=== PATIENT | male | born 1945 | race Caucasian/White ===

== ENCOUNTER 2022-02-21 04:59 | Inpatient (IN) | payer OTHER ==
[~2022-02-21] VITALS: Ht 182.9 cm; Wt 92.0 kg
[2022-02-21] MEDS ORDERED: MORPHINE SULFATE 4 MG/ML SYR/VIAL ONE (05:34)
[2022-02-21] MEDS ORDERED: ONDANSETRON HCL 4 MG/2 ML VIAL ONE (05:34)
[2022-02-21] MEDS ORDERED: MORPHINE SULFATE 4 MG/ML SYR/VIAL IV ONE (05:45)
[2022-02-21] MEDS ORDERED: ONDANSETRON HCL 4 MG/2 ML VIAL IV ONE (05:45)
[2022-02-21] MEDS ORDERED: ASPirin 81 mg TAB PO ONE (06:00)
[2022-02-21 07:17] LABS: INR 1.1 (0.9-1.15); Partial Thromboplastin Time 29.7 sec (23.6-33.0)
[2022-02-21 09:16] LABS: BUN/Creatinine Ratio 14.9; Calcium 8.9 mg/dL (8.5-10.1)
[2022-02-21 09:17] LABS: Albumin 3.9 g/dL (3.4-5.0); Bilirubin, Total 0.4 mg/dL (0.2-1.0); Magnesium 2.9 mg/dL (1.6-2.6); Total Protein 8.1 g/dL (6.4-8.2)
[2022-02-21] MEDS ORDERED: FUROSEMIDE 100 MG/10ML VIAL IV ONE (10:00)
[2022-02-21 10:35] LABS: Cholesterol 206 mg/dL (< 200)
[2022-02-21 10:38] LABS: HDL Cholesterol 35 mg/dL (40-59); LDL Cholesterol 156 mg/dL (< 100); Triglycerides 212 mg/dL (< 150)
[2022-02-21 10:51] LABS: Basophils # (auto) 0.1 10 ^3/uL (0-0.2); Basophils % (auto) 0.4 % (0.0-2.0); Eosinophils # (auto) 0 10 ^3/uL (0-0.8); Eosinophils % (auto) 0.3 % (0.0-7.0); Hematocrit 49.5 % (41.0-53.0); Hemoglobin 16.9 g/dL (13.5-17.5); Lymphocytes # (auto) 1.9 10 ^3/uL (0.4-5.4); Lymphocytes % (auto) 13.1 % (10.0-50.0); Mean Corpuscular Hemoglobin 32.1 pg (28.0-32.0); Mean Corpuscular Hgb Conc. 34.2 g/dL (32.0-36.0); Mean Corpuscular Volume 93.8 fL (80.0-100.0); Monocytes # (auto) 0.9 10 ^3/uL (0-1.3); Monocytes % (auto) 5.9 % (0.0-12.0); Neutrophils # (auto) 11.8 10 ^3/uL (1.6-8.6); Neutrophils % (auto) 80.3 % (37.0-80.0); Nucleated Red Blood Cells % 0.1 %; Red Blood Cells 5.28 10^6/uL (4.5-5.90); Red Cell Distribution Width 14.2 % (11.8-14.3); White Blood Cell 14.7 10^3/uL (4.4-10.8)
[2022-02-21] MEDS ORDERED: HEPARIN DRIP/D5W 100UNITS/ML 250 ML IV SCH (11:30)
[2022-02-21] MEDS: CARVEDILOL 12.5 MG TAB PO ONE ×2 (11:30→14:14)
[2022-02-21] MEDS ORDERED: HEPARIN SODIUM (PORCINE) 5000 UNITS/ML 1ML VIAL IV ONE (11:30)
[2022-02-21] MEDS ORDERED: cefTRIAXone 1GM/50ML D5W 50 ML IV ONE (11:45)
[2022-02-21] MEDS ORDERED: AZITHROMYCIN 500MG/ 250ML 250 ML IV ONE (11:45)
[2022-02-21 13:29] LABS: Basophils # (auto) 0.3 10 ^3/uL (0-0.2); Basophils % (auto) 1.9 % (0.0-2.0); Eosinophils # (auto) 0.1 10 ^3/uL (0-0.8); Eosinophils % (auto) 0.4 % (0.0-7.0); Hematocrit 49.2 % (41.0-53.0); Hemoglobin 16.7 g/dL (13.5-17.5); Lymphocytes # (auto) 1.6 10 ^3/uL (0.4-5.4); Lymphocytes % (auto) 11.3 % (10.0-50.0); Mean Corpuscular Hemoglobin 31.7 pg (28.0-32.0); Mean Corpuscular Hgb Conc. 33.9 g/dL (32.0-36.0); Mean Corpuscular Volume 93.5 fL (80.0-100.0); Monocytes # (auto) 0.7 10 ^3/uL (0-1.3); Monocytes % (auto) 5.2 % (0.0-12.0); Neutrophils # (auto) 11.3 10 ^3/uL (1.6-8.6); Neutrophils % (auto) 81.2 % (37.0-80.0); Nucleated Red Blood Cells % 0.1 %; Red Blood Cells 5.26 10^6/uL (4.5-5.90); Red Cell Distribution Width 14.1 % (11.8-14.3); White Blood Cell 13.9 10^3/uL (4.4-10.8)
[2022-02-21 13:39] LABS: BUN/Creatinine Ratio 14.6; Potassium 4.6 mmol/L (3.5-5.1)
[2022-02-21 13:49] LABS: INR 1.1 (0.9-1.15); Partial Thromboplastin Time 29.8 sec (23.6-33.0)
[2022-02-21 14:10] LABS: Urine Bacteria FEW /hpf (None Seen); Urine Blood 1+ /uL (Negative); Urine Hyaline Cast FEW /lpf (0 - 2); Urine Specific Gravity 1.007 (1.001-1.035); Urine WBC 125 /hpf (0 - 3)
[2022-02-21] MEDS ORDERED: ALBUTEROL SULF 2.5 MG/0.5ML(0.5%) NEB SOLN NEB ONE (15:30)
[2022-02-21] MEDS ORDERED: DEXTROSE (50%) 50ML SYRG IV ONE (15:30)
[2022-02-21] MEDS ORDERED: SODIUM BICARBONATE 8.4% INJ 50ML SYRINGE IV ONE (15:30)
[2022-02-21] MEDS ORDERED: SODIUM ZIRCONIUM CYCL 10 GM PAK PO ONE (15:30)
[2022-02-21] MEDS ORDERED: CALCIUM GLUC 1,000mg/50ml-NS 50 ML IV ONE (15:30)
[2022-02-21] MEDS ORDERED: FUROSEMIDE 20 MG/2 ML VIAL IV ONE (15:30)
[2022-02-21] MEDS ORDERED: InsuLIN REG 1unit/0.01ml Soln (100units/ml) IV ONE (15:30)
[2022-02-21] MEDS ORDERED: POTA-167 PO (20:13)
[2022-02-21] MEDS ORDERED: METO25TA5 PO (20:13)
[2022-02-21] MEDS ORDERED: FURO40TA4 PO (20:13)
[2022-02-21] MEDS ORDERED: ISOS1TAB28 PO (20:13)
[2022-02-21] MEDS ORDERED: ESCI-28 PO (20:13)
[2022-02-21] MEDS ORDERED: NORT50CA57 PO (20:13)
[2022-02-21 21:02] LABS: INR 1.08 (0.9-1.15); Partial Thromboplastin Time 39.9 sec (23.6-33.0)
[2022-02-21 22:00] VITALS: BP 99/77
[2022-02-21] MEDS ORDERED: CARVEDILOL 12.5 MG TAB PO SCH (22:00)
[2022-02-22] VITALS (7 sets, daily range): BP systolic 100–114; BP diastolic 65–79
[2022-02-22 03:04] LABS: INR 1.06 (0.9-1.15); Partial Thromboplastin Time 42.8 sec (23.6-33.0)
[2022-02-22 06:29] LABS: Basophils # (auto) 0.1 10 ^3/uL (0-0.2); Basophils % (auto) 0.9 % (0.0-2.0); Eosinophils # (auto) 0.3 10 ^3/uL (0-0.8); Hemoglobin 16.3 g/dL (13.5-17.5); Lymphocytes # (auto) 2.7 10 ^3/uL (0.4-5.4); Lymphocytes % (auto) 18.9 % (10.0-50.0); Mean Corpuscular Hemoglobin 32.6 pg (28.0-32.0); Mean Corpuscular Hgb Conc. 34.6 g/dL (32.0-36.0); Mean Corpuscular Volume 94.1 fL (80.0-100.0); Monocytes # (auto) 0.9 10 ^3/uL (0-1.3); Monocytes % (auto) 6.3 % (0.0-12.0); Neutrophils # (auto) 10.4 10 ^3/uL (1.6-8.6); Neutrophils % (auto) 71.9 % (37.0-80.0); Nucleated Red Blood Cells % 0.1 %; Red Cell Distribution Width 13.9 % (11.8-14.3); White Blood Cell 14.4 10^3/uL (4.4-10.8)
[2022-02-22 06:37] LABS: Calcium 8.8 mg/dL (8.5-10.1); Potassium 4.1 mmol/L (3.5-5.1)
[2022-02-22 06:39] LABS: BUN/Creatinine Ratio 15.9
[2022-02-22] MEDS ORDERED: cefTRIAXone 1GM/50ML D5W 50 ML IV SCH (09:00)
[2022-02-22] MEDS ORDERED: ENOXAPARIN SOD 40 MG/0.4 ML SYRINGE SC SCH (10:00)
[2022-02-22] MEDS ORDERED: AZITHROMYCIN 500MG/ 250ML 250 ML IV SCH (10:00)
[2022-02-22 10:24] LABS: INR 1.07 (0.9-1.15); Partial Thromboplastin Time 40.9 sec (23.6-33.0)
[2022-02-22] MEDS: ASPirin 81 mg TAB PO SCH (11:03)
[2022-02-22] MEDS: FUROSEMIDE 40 MG/4 ML VIAL IV SCH (12:40)
[2022-02-22] MEDS: CARVEDILOL 12.5 MG TAB PO SCH (22:07)
[2022-02-22] MEDS: ATORVASTATIN 20 MG TAB PO SCH (22:10)
[2022-02-22] MEDS: MORPHINE SULFATE INJ 2 MG/ml SYRG IV PRN (22:12)
[2022-02-23] VITALS (7 sets, daily range): BP systolic 103–129; BP diastolic 55–80
[2022-02-23 05:49] LABS: Basophils # (auto) 0.1 10 ^3/uL (0-0.2); Basophils % (auto) 0.8 % (0.0-2.0); Eosinophils # (auto) 0.1 10 ^3/uL (0-0.8); Eosinophils % (auto) 1.4 % (0.0-7.0); Hematocrit 46.2 % (41.0-53.0); Hemoglobin 16.1 g/dL (13.5-17.5); Lymphocytes # (auto) 2.2 10 ^3/uL (0.4-5.4); Lymphocytes % (auto) 20.3 % (10.0-50.0); Mean Corpuscular Hemoglobin 32.7 pg (28.0-32.0); Mean Corpuscular Hgb Conc. 34.8 g/dL (32.0-36.0); Monocytes # (auto) 0.9 10 ^3/uL (0-1.3); Monocytes % (auto) 8.2 % (0.0-12.0); Neutrophils # (auto) 7.4 10 ^3/uL (1.6-8.6); Neutrophils % (auto) 69.3 % (37.0-80.0); Nucleated Red Blood Cells % 0.2 %; Red Blood Cells 4.91 10^6/uL (4.5-5.90); Red Cell Distribution Width 14.2 % (11.8-14.3); White Blood Cell 10.7 10^3/uL (4.4-10.8)
[2022-02-23 06:04] LABS: BUN/Creatinine Ratio 18.5; Calcium 8.6 mg/dL (8.5-10.1)
[2022-02-23] MEDS: FUROSEMIDE 40 MG/4 ML VIAL IV SCH (10:44)
[2022-02-23] MEDS: ASPirin 81 mg TAB PO SCH (10:44)
[2022-02-23] MEDS: CARVEDILOL 12.5 MG TAB PO SCH ×2 (10:45→21:48)
[2022-02-23] MEDS: ATORVASTATIN 20 MG TAB PO SCH (21:49)
[2022-02-24 05:00] VITALS: BP 106/67
[2022-02-24 08:00] VITALS: BP 112/64
[2022-02-24] MEDS: FUROSEMIDE 40 MG/4 ML VIAL IV SCH (09:05)
[2022-02-24] MEDS: CARVEDILOL 12.5 MG TAB PO SCH (09:07)
[2022-02-24] MEDS: ASPirin 81 mg TAB PO SCH (09:08)
[2022-02-24] MEDS ORDERED: ENOXAPARIN SOD 100 MG/1 ML SYRINGE SC ONE (09:45)
[2022-02-24] MEDS: NITROGLYCERIN 0.4 MG SL TAB SL PRN ×2 (09:56→10:26)
[2022-02-24] MEDS: MORPHINE SULFATE INJ 2 MG/ml SYRG IV PRN (09:57)
[2022-02-24] MEDS ORDERED: POTASSIUM CHL 10 Meq TABLET PO SCH (10:00)
[2022-02-24] MEDS ORDERED: CARVEDILOL 3.125 MG TAB PO ONE (10:30)
[2022-02-24] MEDS ORDERED: DIGOXIN (250MCG/ML) 2 ML AMPULE IV ONE (10:30)
[2022-02-24 12:00] VITALS: BP 126/63
[2022-02-24] MEDS ORDERED: ENOXAPARIN SOD 100 MG/1 ML SYRINGE SC SCH (22:00)
[2022-02-25] MEDS ORDERED: FUROSEMIDE 40 MG TAB PO SCH (10:00)
== END 2022-02-24 12:10 | disposition short-term general hospital (02) | DRG 280 ==
LOC: EDBD 04:59 → ER 04:59 → TELE 10:44 → TELE-CENTR 19:35
PROVIDERS: ADMIT Registered Nurse; ATTEND Internal Medicine
DX: I21.4 Non-ST elevation (NSTEMI) myocardial infarction (principal); N17.0 Acute kidney failure with tubular necrosis; R65.11 Systemic inflammatory response syndrome (SIRS) of non-infectious origin with acute organ dysfunction; I50.43 Acute on chronic combined systolic (congestive) and diastolic (congestive) heart failure; I13.0 Hypertensive heart and chronic kidney disease with heart failure and stage 1 through stage 4 chronic kidney disease, or unspecified chronic kidney disease; N39.0 Urinary tract infection, site not specified; E78.5 Hyperlipidemia, unspecified; E87.5 Hyperkalemia; F32.A Depression, unspecified; N18.31 Chronic kidney disease, stage 3a; Z20.822 Contact with and (suspected) exposure to COVID-19; E78.00 Pure hypercholesterolemia, unspecified; I25.119 Atherosclerotic heart disease of native coronary artery with unspecified angina pectoris; I48.91 Unspecified atrial fibrillation; Z88.0 Allergy status to penicillin; Z95.1 Presence of aortocoronary bypass graft; Z87.891 Personal history of nicotine dependence
CPT/HCPCS: 36415; 71045; 80048; 80053; 80061; 81001; 83735; 83880; 84484; 85025; 85610; 85730; 87040; 87086; 93005; 93306; 96365; 96375; 99291; G0378; J2405

== ENCOUNTER 2024-01-10 15:49 | Inpatient (IN) | payer OTHER ==
[~2024-01-10] VITALS: Ht 168.9 cm; Wt 92.0 kg
[~2024-01-10 15:49] MED LIST: ESCI1TAB36 PO; FURO40TA4 PO; ISOS1TAB28 PO; METO25TA5 PO; NORT50CA57 PO; POTA-211 PO
[2024-01-10 16:47] LABS: Basophils # (auto) 0.1 10 ^3/uL (0-0.2); Basophils % (auto) 0.5 % (0.0-2.0); Eosinophils # (auto) 0.1 10 ^3/uL (0-0.8); Eosinophils % (auto) 0.8 % (0.0-7.0); Hematocrit 47.6 % (41.0-53.0); Hemoglobin 15.7 g/dL (13.5-17.5); Lymphocytes # (auto) 1.6 10 ^3/uL (0.4-5.4); Lymphocytes % (auto) 13.7 % (10.0-50.0); Mean Corpuscular Hemoglobin 30.8 pg (28.0-32.0); Mean Corpuscular Volume 93.3 fL (80.0-100.0); Monocytes # (auto) 0.6 10 ^3/uL (0-1.3); Monocytes % (auto) 5.2 % (0.0-12.0); Neutrophils # (auto) 9.2 10 ^3/uL (1.6-8.6); Neutrophils % (auto) 79.8 % (37.0-80.0); Nucleated Red Blood Cells % 0.1 %; Red Cell Distribution Width 14.5 % (11.8-14.3); White Blood Cell 11.5 10^3/uL (4.4-10.8)
[2024-01-10 17:06] LABS: Alanine Aminotransferase 12 U/L (7-40); Albumin 4.3 g/dL (3.2-4.8); Alkaline Phosphatase 105 U/L (46-116); Anion Gap 10 (5-15); Aspartate Aminotransferase 17 U/L (13-40); BUN/Creatinine Ratio 15.3 (10.0-20.0); Blood Urea Nitrogen 20 mg/dL (9-23); Calcium 9.4 mg/dL (8.5-10.1); Carbon Dioxide 26 mmol/L (20-30); Chloride 103 mmol/L (98-107); Glucose 144 mg/dL (74-106); Potassium 4.1 mmol/L (3.5-5.1); Sodium 139 mmol/L (136-145)
[2024-01-10 17:07] LABS: Bilirubin, Total 0.4 mg/dL (0.2-1.0); Total Protein 6.8 g/dL (5.7-8.2)
[2024-01-10] MEDS ORDERED: ASPirin 81 mg TAB PO ONE (18:00)
[2024-01-10 19:04] LABS: INR 1.14 (0.9-1.15); Partial Thromboplastin Time 33.5 SEC (24.5-34.5); Prothrombin Time 11.9 sec (9.3-11.8)
[2024-01-10] MEDS ORDERED: NITROGLYCERIN 0.4 MG SL TAB SL PRN (21:00)
[2024-01-10] MEDS ORDERED: ONDANSETRON HCL 4 MG/2 ML VIAL IV PRN (21:00)
[2024-01-10] MEDS ORDERED: MORPHINE SULFATE INJ 2 MG/ml SYRG IV PRN (21:00)
[2024-01-10 21:52] LABS: Basophils # (auto) 0 10 ^3/uL (0-0.2); Basophils % (auto) 0.2 % (0.0-2.0); Eosinophils # (auto) 0 10 ^3/uL (0-0.8); Eosinophils % (auto) 0.1 % (0.0-7.0); Hematocrit 48.7 % (41.0-53.0); Hemoglobin 16.3 g/dL (13.5-17.5); Lymphocytes # (auto) 1.1 10 ^3/uL (0.4-5.4); Lymphocytes % (auto) 7.8 % (10.0-50.0); Mean Corpuscular Hemoglobin 31.4 pg (28.0-32.0); Mean Corpuscular Hgb Conc. 33.4 g/dL (32.0-36.0); Mean Corpuscular Volume 93.8 fL (80.0-100.0); Monocytes # (auto) 0.7 10 ^3/uL (0-1.3); Monocytes % (auto) 4.8 % (0.0-12.0); Neutrophils # (auto) 12.7 10 ^3/uL (1.6-8.6); Neutrophils % (auto) 87.1 % (37.0-80.0); Nucleated Red Blood Cells % 0.1 %; Red Blood Cells 5.19 10^6/uL (4.5-5.90); Red Cell Distribution Width 14.4 % (11.8-14.3); White Blood Cell 14.6 10^3/uL (4.4-10.8)
[2024-01-10 22:09] VITALS: PULSE 109; O2SAT 97
[2024-01-10 22:10] LABS: INR 1.1 (0.9-1.15); Partial Thromboplastin Time 31.3 SEC (24.5-34.5); Prothrombin Time 11.5 sec (9.3-11.8)
[2024-01-10] MEDS: MORPHINE SULFATE INJ 2 MG/ml SYRG IV ONE (22:24)
[2024-01-10] MEDS: ONDANSETRON HCL 4 MG/2 ML VIAL IV ONE (22:24)
[2024-01-10] MEDS: IOHEXOL 350 MG/ML 100ML IJ ONE (22:25)
[2024-01-10] MEDS: ASPirin 81 mg TAB PO ONE (22:25)
[2024-01-10] MEDS: ATORVASTATIN 20 MG TAB PO SCH (22:28)
[2024-01-10] MEDS: HEPARIN DRIP/D5W 100UNITS/ML 250 ML IV ONE (23:51)
[2024-01-10] MEDS: HEPARIN SODIUM (PORCINE) 5000 UNITS/ML 1ML VIAL IV ONE (23:52)
[2024-01-10] MEDS: HEPARIN DRIP/D5W 100UNITS/ML 250 ML IV SCH (23:54)
[2024-01-11] VITALS (7 sets, daily range): BP systolic 100–141; BP diastolic 42–79; PULSE 61–99; RESP 16–20; TEMP 97–98; O2SAT 91–98
[2024-01-11 00:47] LABS: Urine Bacteria None Seen /hpf (None Seen)
[2024-01-11 01:31] LABS: Urine Blood Negative /uL (Negative); Urine Clarity Clear (Clear); Urine Color Light-Yellow (Yellow); Urine Protein, UAD Negative (Negative); Urine Specific Gravity 1.031 (1.001-1.035); Urine Urobilinogen Normal (Negative); Urine WBC 5 /hpf (0 - 3); Urine pH 5.5 (5.0-9.0)
[2024-01-11 01:32] LABS: Amphetamine Screen, Urine Neg (NEGATIVE)
[2024-01-11 01:33] LABS: Barbiturate Scree,Urine Neg (NEGATIVE); Benzodiazephine Screen, Urine Neg (NEGATIVE); Cannabinoid Screen, Urine Neg (NEGATIVE); Cocaine Screen, Urine Neg (NEGATIVE); Opiate Scree,Urine Neg (NEGATIVE); Phencyclidine Screen, Urine Neg (NEGATIVE)
[2024-01-11 09:36] LABS: Basophils # (auto) 0.1 10 ^3/uL (0-0.2); Basophils % (auto) 0.3 % (0.0-2.0); Eosinophils # (auto) 0 10 ^3/uL (0-0.8); Eosinophils % (auto) 0.2 % (0.0-7.0); Hematocrit 49.9 % (41.0-53.0); Hemoglobin 16.3 g/dL (13.5-17.5); Lymphocytes # (auto) 1.6 10 ^3/uL (0.4-5.4); Lymphocytes % (auto) 9.9 % (10.0-50.0); Mean Corpuscular Hemoglobin 31.3 pg (28.0-32.0); Mean Corpuscular Hgb Conc. 32.7 g/dL (32.0-36.0); Mean Corpuscular Volume 95.6 fL (80.0-100.0); Monocytes # (auto) 0.9 10 ^3/uL (0-1.3); Monocytes % (auto) 5.7 % (0.0-12.0); Neutrophils # (auto) 13.9 10 ^3/uL (1.6-8.6); Neutrophils % (auto) 83.9 % (37.0-80.0); Nucleated Red Blood Cells % 0.1 %; Red Blood Cells 5.22 10^6/uL (4.5-5.90); Red Cell Distribution Width 14.8 % (11.8-14.3); White Blood Cell 16.5 10^3/uL (4.4-10.8)
[2024-01-11 09:49] LABS: Chloride 103 mmol/L (98-107); Potassium 4.8 mmol/L (3.5-5.1); Sodium 137 mmol/L (136-145)
[2024-01-11 09:50] LABS: Anion Gap 8 (5-15); Calcium 9.2 mg/dL (8.5-10.1); Carbon Dioxide 26 mmol/L (20-30)
[2024-01-11 09:55] LABS: BUN/Creatinine Ratio 10.2 (10.0-20.0); Blood Urea Nitrogen 13 mg/dL (9-23); Glucose 145 mg/dL (74-106)
[2024-01-11] MEDS: ASPirin 81 mg TAB PO SCH (10:00)
[2024-01-11] MEDS: LISINOPRIL 5 MG TAB PO SCH (10:00)
[2024-01-11] MEDS ORDERED: LISINOPRIL 5 MG TAB PO SCH (10:00)
[2024-01-11 10:38] LABS: INR 1.14 (0.9-1.15); Partial Thromboplastin Time 52.4 SEC (24.5-34.5); Prothrombin Time 11.9 sec (9.3-11.8)
[2024-01-11] MEDS ORDERED: LEVO112T4 PO (14:23)
[2024-01-11] MEDS ORDERED: GABA-1308 PO (14:23)
[2024-01-11] MEDS ORDERED: ESCI10TA PO (14:23)
[2024-01-11] MEDS ORDERED: ROSU20TA14 PO (14:23)
[2024-01-11] MEDS ORDERED: FURO1TAB33 PO (14:23)
[2024-01-11] MEDS ORDERED: SPIR25TA8 PO (14:23)
[2024-01-11] MEDS ORDERED: ASPI1TAB20 PO (14:23)
[2024-01-11] MEDS ORDERED: DABI150C5 PO (14:23)
[2024-01-11] MEDS ORDERED: NORT25CA PO (14:23)
[2024-01-11] MEDS ORDERED: NITR0.4S29 SL (14:23)
[2024-01-11] MEDS ORDERED: TAMS0.4C36 PO (14:23)
[2024-01-11] MEDS ORDERED: CARV3.1240 PO (14:23)
[2024-01-11] MEDS ORDERED: LISI-275 PO (14:23)
[2024-01-11] MEDS ORDERED: FINA5TAB4 PO (14:23)
[2024-01-11] MEDS ORDERED: VALA1TAB PO (14:23)
[2024-01-11 14:58] LABS: INR 1.14 (0.9-1.15); Partial Thromboplastin Time 55.8 SEC (24.5-34.5); Prothrombin Time 11.9 sec (9.3-11.8)
[2024-01-11] MEDS ORDERED: DOCUSATE SOD 100 MG CAP PO PRN (16:00)
[2024-01-11] MEDS ORDERED: ACETAMINOPHEN 500 MG TAB PO PRN (16:00)
[2024-01-11] MEDS ORDERED: ALBUTEROL SULF 2.5 MG/0.5ML(0.5%) NEB SOLN NEB PRN (16:00)
[2024-01-11] MEDS ORDERED: IPRATROPIUM BROM 0.5 MG/2.5ML INH SOL NEB PRN (16:00)
[2024-01-11 16:45] LABS: Erythrocyte Sedimentation Rate 16 mm/hr (0-20)
[2024-01-11] MEDS: levoFLOXacin 500MG 100 ML IV SCH (18:25)
[2024-01-11] MEDS: CLOPIDOGREL BISULFATE 75 MG TAB PO ONE (18:25)
[2024-01-11 20:44] LABS: INR 1.17 (0.9-1.15); Partial Thromboplastin Time 39.3 SEC (24.5-34.5); Prothrombin Time 12.2 sec (9.3-11.8)
[2024-01-11] MEDS: HEPARIN DRIP/D5W 100UNITS/ML 250 ML IV SCH (21:52)
[2024-01-12] VITALS (16 sets, daily range): BP systolic 97–127; BP diastolic 41–72; PULSE 80–100; RESP 15–19; TEMP 97.1–99.8; O2SAT 91–99
[2024-01-12 07:02] LABS: Chloride 101 mmol/L (98-107); Potassium 4.3 mmol/L (3.5-5.1); Sodium 136 mmol/L (136-145)
[2024-01-12 07:03] LABS: Anion Gap 9 (5-15); Calcium 9.2 mg/dL (8.5-10.1); Carbon Dioxide 26 mmol/L (20-30)
[2024-01-12 07:08] LABS: BUN/Creatinine Ratio 12.5 (10.0-20.0); Blood Urea Nitrogen 15 mg/dL (9-23); Glucose 153 mg/dL (74-106); Triglycerides 99 mg/dL (< 150)
[2024-01-12 07:09] LABS: LDL Cholesterol 61 mg/dL (< 100)
[2024-01-12 07:10] LABS: Cholesterol 117 mg/dL (< 200); HDL Cholesterol 41 mg/dL (40-59)
[2024-01-12 07:12] LABS: INR 1.23 (0.9-1.15); Partial Thromboplastin Time 57.2 SEC (24.5-34.5); Prothrombin Time 12.7 sec (9.3-11.8)
[2024-01-12 07:14] LABS: Hematocrit 47.6 % (41.0-53.0); Hemoglobin 15.7 g/dL (13.5-17.5); Mean Corpuscular Hemoglobin 31.3 pg (28.0-32.0); Mean Corpuscular Hgb Conc. 33.1 g/dL (32.0-36.0); Mean Corpuscular Volume 94.7 fL (80.0-100.0); Red Blood Cells 5.02 10^6/uL (4.5-5.90); Red Cell Distribution Width 14.7 % (11.8-14.3); White Blood Cell 13.1 10^3/uL (4.4-10.8)
[2024-01-12 08:05] LABS: Band Neutrophils % (manual) 0; Basophils % (manual) 0 (0.0-2.0); Blast Cells 0; Metamyelocytes % 0; Myelocytes % 0; Promyelocytes % 0; Reactive Lymphocytes 0
[2024-01-12] MEDS: EMPAGLIFLOZIN 10 MG TAB PO SCH (10:00)
[2024-01-12] MEDS: LISINOPRIL 5 MG TAB PO SCH (10:00)
[2024-01-12] MEDS: ASPirin 81 mg TAB PO SCH (10:00)
[2024-01-12 11:51] LABS: Eosinophils % (manual) 1 (0-7); Lymphocytes % (manual) 7 (10.0-50.0); Monocytes % (manual) 4 (0-12); Platelet Estimate Adequate
[2024-01-12 14:00] LABS: INR 1.21 (0.9-1.15); Partial Thromboplastin Time 64.3 SEC (24.5-34.5); Prothrombin Time 12.6 sec (9.3-11.8)
[2024-01-12] MEDS: VERAPAMIL 2.5MG/ML INJ 2ML VIAL IV ONE (15:08)
[2024-01-12] MEDS: ANGIOMAX 250 MG VIAL IV ONE (15:08)
[2024-01-12] MEDS: fentaNYL CITRATE 100 MCG/2 ML VL ONE (15:09)
[2024-01-12] MEDS: SODIUM CHL 0.9% 0 ML ONE (15:09)
[2024-01-12] MEDS: MIDAZOLAM HCL 2MG/2ML 2ml VIAL (1mg/ml) ONE (15:09)
[2024-01-12] MEDS: IODIXANOL 320MG/ML 100ML BTL IV ONE ×2 (15:10→16:56)
[2024-01-12] MEDS: LIDOCAINE 2%HCL (LOCAL ANESTH.) INJ 20ML MDV ONE (15:10)
[2024-01-12 20:32] LABS: INR 1.25 (0.9-1.15)
[2024-01-13] VITALS (10 sets, daily range): BP systolic 93–132; BP diastolic 59–75; PULSE 79–101; RESP 17–19; TEMP 97.2–98.3; O2SAT 92–99
[2024-01-13 02:26] LABS: INR 1.18 (0.9-1.15); Partial Thromboplastin Time 52.3 SEC (24.5-34.5); Prothrombin Time 12.4 sec (9.3-11.8)
[2024-01-13 05:56] LABS: Basophils # (auto) 0 10 ^3/uL (0-0.2); Basophils % (auto) 0.3 % (0.0-2.0); Eosinophils # (auto) 0.1 10 ^3/uL (0-0.8); Eosinophils % (auto) 0.5 % (0.0-7.0); Hemoglobin 12.9 g/dL (13.5-17.5); Lymphocytes # (auto) 1.4 10 ^3/uL (0.4-5.4); Mean Corpuscular Hemoglobin 31.7 pg (28.0-32.0); Mean Corpuscular Volume 93.2 fL (80.0-100.0); Monocytes % (auto) 7.9 % (0.0-12.0); Neutrophils # (auto) 9.9 10 ^3/uL (1.6-8.6); Neutrophils % (auto) 80.3 % (37.0-80.0); Nucleated Red Blood Cells % 0.2 %; Red Blood Cells 4.08 10^6/uL (4.5-5.90); Red Cell Distribution Width 14.3 % (11.8-14.3); White Blood Cell 12.3 10^3/uL (4.4-10.8)
[2024-01-13 06:04] LABS: Chloride 102 mmol/L (98-107); Potassium 4.4 mmol/L (3.5-5.1); Sodium 135 mmol/L (136-145)
[2024-01-13 06:05] LABS: Anion Gap 9 (5-15); Calcium 8.9 mg/dL (8.5-10.1); Carbon Dioxide 24 mmol/L (20-30)
[2024-01-13 06:11] LABS: BUN/Creatinine Ratio 10.7 (10.0-20.0); Blood Urea Nitrogen 12 mg/dL (9-23); Glucose 130 mg/dL (74-106)
[2024-01-13] MEDS: CLOPIDOGREL BISULFATE 75 MG TAB PO ONE (15:14)
[2024-01-13] MEDS: HYDROcodone-ACET 5/325MG TAB PO PRN (21:12)
[2024-01-13] MEDS: ENOXAPARIN SOD 100 MG/1 ML SYRINGE SC SCH (21:13)
[2024-01-13] MEDS: METOPROLOL TARTRATE 25 MG TAB PO SCH (21:13)
[2024-01-13] MEDS: MORPHINE SULFATE INJ 2 MG/ml SYRG IV PRN (21:44)
[2024-01-14] VITALS (12 sets, daily range): BP systolic 82–122; BP diastolic 43–77; PULSE 84–115; RESP 17–21; TEMP 97.5–98.6; O2SAT 95–99
[2024-01-14 04:54] LABS: Chloride 102 mmol/L (98-107); Potassium 4.1 mmol/L (3.5-5.1); Sodium 135 mmol/L (136-145)
[2024-01-14 04:55] LABS: Anion Gap 8 (5-15); Calcium 9.5 mg/dL (8.7-10.4); Carbon Dioxide 25 mmol/L (20-30)
[2024-01-14 04:56] LABS: Basophils # (auto) 0.1 10 ^3/uL (0-0.2); Basophils % (auto) 0.5 % (0.0-2.0); Eosinophils # (auto) 0 10 ^3/uL (0-0.8); Eosinophils % (auto) 0.3 % (0.0-7.0); Hematocrit 34.4 % (41.0-53.0); Hemoglobin 11.4 g/dL (13.5-17.5); Lymphocytes # (auto) 0.9 10 ^3/uL (0.4-5.4); Lymphocytes % (auto) 7.2 % (10.0-50.0); Mean Corpuscular Hemoglobin 31.2 pg (28.0-32.0); Mean Corpuscular Hgb Conc. 33.2 g/dL (32.0-36.0); Mean Corpuscular Volume 93.9 fL (80.0-100.0); Monocytes # (auto) 0.8 10 ^3/uL (0-1.3); Monocytes % (auto) 6.4 % (0.0-12.0); Neutrophils # (auto) 10.9 10 ^3/uL (1.6-8.6); Neutrophils % (auto) 85.6 % (37.0-80.0); Red Blood Cells 3.66 10^6/uL (4.5-5.90); Red Cell Distribution Width 14.2 % (11.8-14.3); White Blood Cell 12.8 10^3/uL (4.4-10.8)
[2024-01-14 05:00] LABS: BUN/Creatinine Ratio 17.1 (10.0-20.0); Glucose 152 mg/dL (74-106)
[2024-01-14 05:18] LABS: INR 1.14 (0.9-1.15); Partial Thromboplastin Time 32.8 SEC (24.5-34.5)
[2024-01-14] MEDS ORDERED: THROMBIN (BOVINE) 5000 UNIT SOL VIAL TP STA (05:40)
[2024-01-14 05:47] LABS: Blood Urea Nitrogen 24 mg/dL (9-23)
[2024-01-14] MEDS: CLOPIDOGREL BISULFATE 75 MG TAB PO SCH (10:00)
[2024-01-14 12:33] LABS: Hematocrit 34.2 % (41.0-53.0); Hemoglobin 11.2 g/dL (13.5-17.5)
[2024-01-14] MEDS: SPIRONOLACTONE 25 MG TAB PO SCH (12:34)
[2024-01-14] MEDS ORDERED: HALOPERIDOL 5 MG TAB PO ONE (15:15)
[2024-01-14] MEDS: ONDANSETRON HCL 4 MG/2 ML VIAL IV PRN (15:28)
[2024-01-15] VITALS (11 sets, daily range): BP systolic 87–93; BP diastolic 46–57; PULSE 87–95; RESP 12–18; TEMP 97–98.2; O2SAT 91–99
[2024-01-15 07:27] LABS: Chloride 101 mmol/L (98-107); Potassium 4.1 mmol/L (3.5-5.1); Sodium 135 mmol/L (136-145)
[2024-01-15 07:28] LABS: Anion Gap 10 (5-15); Carbon Dioxide 24 mmol/L (20-30)
[2024-01-15 07:29] LABS: Calcium 9.4 mg/dL (8.7-10.4)
[2024-01-15 07:33] LABS: BUN/Creatinine Ratio 15.6 (10.0-20.0); Blood Urea Nitrogen 22 mg/dL (9-23); Glucose 115 mg/dL (74-106)
[2024-01-15 07:35] LABS: Basophils # (auto) 0 10 ^3/uL (0-0.2); Basophils % (auto) 0.3 % (0.0-2.0); Eosinophils # (auto) 0.1 10 ^3/uL (0-0.8); Eosinophils % (auto) 0.8 % (0.0-7.0); Hematocrit 32.6 % (41.0-53.0); Hemoglobin 10.6 g/dL (13.5-17.5); Lymphocytes # (auto) 1.8 10 ^3/uL (0.4-5.4); Mean Corpuscular Hemoglobin 31.1 pg (28.0-32.0); Mean Corpuscular Hgb Conc. 32.5 g/dL (32.0-36.0); Mean Corpuscular Volume 95.6 fL (80.0-100.0); Monocytes # (auto) 1.1 10 ^3/uL (0-1.3); Monocytes % (auto) 8.5 % (0.0-12.0); Neutrophils # (auto) 9.6 10 ^3/uL (1.6-8.6); Neutrophils % (auto) 76.4 % (37.0-80.0); Nucleated Red Blood Cells % 0.1 %; Red Blood Cells 3.41 10^6/uL (4.5-5.90); Red Cell Distribution Width 14.7 % (11.8-14.3); White Blood Cell 12.6 10^3/uL (4.4-10.8)
[2024-01-15] MEDS: LACTULOSE 20Gm/30ML SOLN PO ONE ×2 (11:39→17:23)
[2024-01-15] MEDS: DOCUSATE SOD 100 MG CAP PO SCH (11:40)
[2024-01-15] MEDS ORDERED: DOCUSATE SOD 100 MG CAP PO PRN (16:00)
[2024-01-16] VITALS (11 sets, daily range): BP systolic 93–115; BP diastolic 53–69; PULSE 86–96; RESP 15–22; TEMP 97.4–98.6; O2SAT 93–99
[2024-01-16 05:04] LABS: Basophils # (auto) 0.1 10 ^3/uL (0-0.2); Basophils % (auto) 0.5 % (0.0-2.0); Eosinophils # (auto) 0.1 10 ^3/uL (0-0.8); Eosinophils % (auto) 0.9 % (0.0-7.0); Hematocrit 34.2 % (41.0-53.0); Lymphocytes # (auto) 1.8 10 ^3/uL (0.4-5.4); Lymphocytes % (auto) 11.7 % (10.0-50.0); Mean Corpuscular Hemoglobin 30.6 pg (28.0-32.0); Mean Corpuscular Hgb Conc. 32.2 g/dL (32.0-36.0); Mean Corpuscular Volume 94.9 fL (80.0-100.0); Monocytes # (auto) 1.2 10 ^3/uL (0-1.3); Monocytes % (auto) 7.8 % (0.0-12.0); Neutrophils # (auto) 12.4 10 ^3/uL (1.6-8.6); Neutrophils % (auto) 79.1 % (37.0-80.0); Nucleated Red Blood Cells % 0.1 %; Red Cell Distribution Width 14.7 % (11.8-14.3); White Blood Cell 15.7 10^3/uL (4.4-10.8)
== END 2024-01-16 21:53 | disposition short-term general hospital (02) | DRG 853 ==
LOC: EDBD 15:49 → ER 15:49 → TELE 21:07 → TELE-WESTW 01-11 04:40
PROVIDERS: ADMIT Nurse Practitioner Acute Care; ATTEND Nurse Practitioner Acute Care
PROC: 4A023N7 Measurement of Cardiac Sampling and Pressure, Left Heart, Percutaneous Approach (ICD-10-PCS; principal; 2024-01-12)
PROC: B211YZZ Fluoroscopy of Multiple Coronary Arteries using Other Contrast (ICD-10-PCS; 2024-01-12)
PROC: 02703ZZ Dilation of Coronary Artery, One Artery, Percutaneous Approach (ICD-10-PCS; 2024-01-12)
PROC: B213YZZ Fluoroscopy of Multiple Coronary Artery Bypass Grafts using Other Contrast (ICD-10-PCS; 2024-01-12)
DX: A41.9 Sepsis, unspecified organism (principal); I21.29 ST elevation (STEMI) myocardial infarction involving other sites; I50.23 Acute on chronic systolic (congestive) heart failure; J15.69 Pneumonia due to other Gram-negative bacteria; J96.01 Acute respiratory failure with hypoxia; J15.9 Unspecified bacterial pneumonia; N17.9 Acute kidney failure, unspecified; I11.0 Hypertensive heart disease with heart failure; I48.0 Paroxysmal atrial fibrillation; I25.5 Ischemic cardiomyopathy; E66.9 Obesity, unspecified; E78.5 Hyperlipidemia, unspecified; F32.A Depression, unspecified; N40.0 Benign prostatic hyperplasia without lower urinary tract symptoms; I08.1 Rheumatic disorders of both mitral and tricuspid valves; I25.119 Atherosclerotic heart disease of native coronary artery with unspecified angina pectoris; I72.4 Aneurysm of artery of lower extremity; I49.1 Atrial premature depolarization; Z88.0 Allergy status to penicillin; Z95.1 Presence of aortocoronary bypass graft; Z68.32 Body mass index [BMI] 32.0-32.9, adult
CPT/HCPCS: 36415; 70450; 71045; 71275; 72192; 74176; 76881; 80048; 80053; 80061; 80307; 81001; 83036; 83880; 84443; 84484; 85007; 85014; 85018; 85025; 85027; 85379; 85610; 85652; 85730; 86141; 86850; 86900; 86901; 87040; 92941; 93005; 93306; 93459; 93926; 99152; G0378; J1956; J2250; J2405; Q9967

== ENCOUNTER 2024-01-27 11:32 | Inpatient (IN) | payer OTHER ==
[~2024-01-27] VITALS: Ht 167.6 cm; Wt 95.3 kg
[~2024-01-27 11:32] MED LIST changes: +ASPI1TAB20 PO; +CARV3.1240 PO; +DABI150C5 PO; +ESCI10TA PO; -ESCI1TAB36 PO; +FINA5TAB4 PO; +GABA-1308 PO; +LEVO112T4 PO; +LISI-275 PO; +NITR0.4S29 SL; +ROSU20TA14 PO; +SPIR25TA8 PO; +TAMS0.4C36 PO; +VALA1TAB PO
[2024-01-27 12:40] VITALS: PULSE 126; RESP 17; O2SAT 97
[2024-01-27 12:47] LABS: Basophils # (auto) 0.1 10 ^3/uL (0-0.2); Basophils % (auto) 0.5 % (0.0-2.0); Eosinophils # (auto) 0 10 ^3/uL (0-0.8); Eosinophils % (auto) 0.3 % (0.0-7.0); Hematocrit 40.5 % (41.0-53.0); Hemoglobin 12.7 g/dL (13.5-17.5); Lymphocytes # (auto) 1.3 10 ^3/uL (0.4-5.4); Lymphocytes % (auto) 10.3 % (10.0-50.0); Mean Corpuscular Hemoglobin 30.3 pg (28.0-32.0); Mean Corpuscular Hgb Conc. 31.4 g/dL (32.0-36.0); Mean Corpuscular Volume 96.6 fL (80.0-100.0); Monocytes # (auto) 0.7 10 ^3/uL (0-1.3); Monocytes % (auto) 5.5 % (0.0-12.0); Neutrophils # (auto) 10.2 10 ^3/uL (1.6-8.6); Neutrophils % (auto) 83.4 % (37.0-80.0); Nucleated Red Blood Cells % 0.1 %; Red Blood Cells 4.19 10^6/uL (4.5-5.90); Red Cell Distribution Width 16.5 % (11.8-14.3); White Blood Cell 12.2 10^3/uL (4.4-10.8)
[2024-01-27] MEDS: NITROGLYCERIN 0.4 MG SL TAB SL ONE (12:51)
[2024-01-27] MEDS: ENOXAPARIN SOD 100 MG/1 ML SYRINGE SC ONE (14:55)
[2024-01-27] MEDS: FUROSEMIDE 40 MG/4 ML VIAL IV ONE (14:55)
[2024-01-27] MEDS: ONDANSETRON HCL 4 MG/2 ML VIAL IV ONE (14:56)
[2024-01-27] MEDS: MORPHINE SULFATE 4 MG/ML SYR/VIAL IV ONE (14:57)
[2024-01-27 15:04] LABS: Alanine Aminotransferase 14 U/L (7-40); Alkaline Phosphatase 91 U/L (46-116); Anion Gap 8 (5-15); Aspartate Aminotransferase 20 U/L (13-40); BUN/Creatinine Ratio 20.9 (10.0-20.0); Blood Urea Nitrogen 24 mg/dL (9-23); Calcium 8.8 mg/dL (8.7-10.4); Carbon Dioxide 23 mmol/L (20-30); Chloride 106 mmol/L (98-107); Glucose 146 mg/dL (74-106); Potassium 4.9 mmol/L (3.5-5.1); Sodium 137 mmol/L (136-145)
[2024-01-27 15:05] LABS: Albumin 3.9 g/dL (3.2-4.8); Bilirubin, Total 0.7 mg/dL (0.2-1.0); Total Protein 6.4 g/dL (5.7-8.2)
[2024-01-27] MEDS ORDERED: ACETAMINOPHEN 325 MG TAB PO PRN (15:30)
[2024-01-27] MEDS ORDERED: ONDANSETRON HCL 4 MG/2 ML VIAL IV PRN (15:30)
[2024-01-27] MEDS ORDERED: NITROGLYCERIN 0.4 MG SL TAB SL PRN (15:30)
[2024-01-27 16:35] LABS: LDL Cholesterol 51 mg/dL (< 100); Triglycerides 80 mg/dL (< 150)
[2024-01-27 16:37] LABS: Cholesterol 99 mg/dL (< 200); HDL Cholesterol 35 mg/dL (40-59)
[2024-01-27 16:55] LABS: INR 1.13 (0.9-1.15); Prothrombin Time 11.9 sec (9.3-11.8)
[2024-01-27] MEDS: TAMSULOSIN HYDROCHLORIDE 0.4 MG CAP PO SCH (18:25)
[2024-01-27 20:04] LABS: Urine Bacteria None Seen /hpf (None Seen)
[2024-01-27 20:22] VITALS: PULSE 133; RESP 17; O2SAT 96
[2024-01-27 21:00] LABS: Urine Blood Negative /uL (Negative); Urine Clarity Clear (Clear); Urine Color Light-Yellow (Yellow); Urine Protein, UAD Negative (Negative); Urine Specific Gravity 1.012 (1.001-1.035); Urine Urobilinogen Normal (Negative); Urine WBC 1 /hpf (0 - 3); Urine pH 5.5 (5.0-9.0)
[2024-01-27] MEDS: CARVEDILOL 3.125 MG TAB PO SCH (23:02)
[2024-01-27] MEDS: GABAPENTIN 100 MG CAP PO SCH (23:02)
[2024-01-27] MEDS: ATORVASTATIN 20 MG TAB PO SCH (23:02)
[2024-01-27] MEDS: dilTIAZem 25 MG/5 ML VIAL IV ONE (23:03)
[2024-01-28 06:18] LABS: Basophils # (auto) 0.1 10 ^3/uL (0-0.2); Basophils % (auto) 0.9 % (0.0-2.0); Eosinophils # (auto) 0.1 10 ^3/uL (0-0.8); Eosinophils % (auto) 0.9 % (0.0-7.0); Hemoglobin 12.7 g/dL (13.5-17.5); Lymphocytes # (auto) 2.1 10 ^3/uL (0.4-5.4); Lymphocytes % (auto) 20.9 % (10.0-50.0); Mean Corpuscular Hemoglobin 30.8 pg (28.0-32.0); Mean Corpuscular Hgb Conc. 32.5 g/dL (32.0-36.0); Mean Corpuscular Volume 94.8 fL (80.0-100.0); Monocytes # (auto) 0.8 10 ^3/uL (0-1.3); Monocytes % (auto) 8.1 % (0.0-12.0); Neutrophils # (auto) 7.1 10 ^3/uL (1.6-8.6); Neutrophils % (auto) 69.2 % (37.0-80.0); Red Blood Cells 4.12 10^6/uL (4.5-5.90); Red Cell Distribution Width 16.2 % (11.8-14.3); White Blood Cell 10.2 10^3/uL (4.4-10.8)
[2024-01-28 06:33] LABS: Alanine Aminotransferase 11 U/L (7-40); Albumin 4.1 g/dL (3.2-4.8); Alkaline Phosphatase 96 U/L (46-116); Anion Gap 8 (5-15); Aspartate Aminotransferase 23 U/L (13-40); BUN/Creatinine Ratio 15.9 (10.0-20.0); Blood Urea Nitrogen 18 mg/dL (9-23); Carbon Dioxide 23 mmol/L (20-30); Chloride 104 mmol/L (98-107); Glucose 124 mg/dL (74-106); Potassium 4.4 mmol/L (3.5-5.1); Sodium 135 mmol/L (136-145)
[2024-01-28 06:34] LABS: Bilirubin, Total 1.1 mg/dL (0.2-1.0)
[2024-01-28] MEDS: FUROSEMIDE 40 MG/4 ML VIAL IV SCH (06:43)
[2024-01-28 07:45] VITALS: PULSE 136; RESP 16; O2SAT 100
[2024-01-28] MEDS: LISINOPRIL 5 MG TAB PO SCH (10:00)
[2024-01-28] MEDS ORDERED: METOPROLOL TARTRATE 25 MG TAB PO SCH (10:00)
[2024-01-28] MEDS: SPIRONOLACTONE 25 MG TAB PO SCH (10:00)
[2024-01-28] MEDS ORDERED: LEVOTHYROXINE SODIUM 112 MCG TAB PO SCH (10:00)
[2024-01-28] MEDS: ASPirin-EC 81 mg tab PO SCH (10:12)
[2024-01-28] MEDS: FINASTERIDE 5 MG TAB PO SCH (10:13)
[2024-01-28] MEDS: CITALOPRAM HYDROBR 20 MG TAB PO SCH (10:13)
[2024-01-28] MEDS: DABIGATRAN 75 MG CAP PO SCH (10:25)
[2024-01-28] MEDS: NORTRIPTYLINE HCL 25 MG CAP PO SCH (10:25)
[2024-01-28 14:48] VITALS: BP 108/76; PULSE 126; RESP 16; TEMP 97.7; O2SAT 99
[2024-01-28] MEDS: AMIODARONE BOLUS KIT 100 ML IV ONE (15:27)
[2024-01-28] MEDS: AMIODARONE 450mg/250ml AE 250 ML IV SCH (16:08)
[2024-01-28] MEDS: MORPHINE SULFATE 4 MG/ML SYR/VIAL IV PRN (16:14)
[2024-01-28 16:26] VITALS: BP 95/72; PULSE 122; RESP 17; TEMP 96.4; O2SAT 98
[2024-01-28 18:47] VITALS: BP 95/75; PULSE 122; RESP 16; TEMP 96.4; O2SAT 98
[2024-01-28 20:00] VITALS: BP 100/60; PULSE 118; RESP 19; TEMP 98; O2SAT 94
[2024-01-28 21:00] VITALS: BP 102/81; PULSE 114; RESP 16; TEMP 97.4; O2SAT 96
[2024-01-29] VITALS (9 sets, daily range): BP systolic 93–136; BP diastolic 56–82; PULSE 97–119; RESP 17–20; TEMP 96.4–98.3; O2SAT 90–100
[2024-01-29] MEDS: AMIODARONE 450mg/250ml AE 250 ML IV SCH (00:35)
[2024-01-29] MEDS: LEVOTHYROXINE SODIUM 112 MCG TAB PO SCH (06:04)
[2024-01-29] MEDS ORDERED: LISINOPRIL 5 MG TAB PO SCH ×2 (10:00→22:00)
[2024-01-29] MEDS ORDERED: SPIRONOLACTONE 25 MG TAB PO SCH (10:00)
[2024-01-29] MEDS: ISOSORBIDE MONONITRATE ER 60 MG TAB PO SCH (10:37)
[2024-01-29] MEDS: METOPROLOL TARTRATE 25 MG TAB PO SCH (10:38)
[2024-01-29] MEDS: FUROSEMIDE 20 MG TAB PO SCH (10:38)
[2024-01-29 11:23] LABS: Chloride 102 mmol/L (98-107); Potassium 4.3 mmol/L (3.5-5.1); Sodium 135 mmol/L (136-145)
[2024-01-29 11:24] LABS: Anion Gap 9 (5-15); Calcium 9.6 mg/dL (8.5-10.1); Carbon Dioxide 24 mmol/L (20-30)
[2024-01-29 11:29] LABS: Blood Urea Nitrogen 25 mg/dL (9-23); Glucose 155 mg/dL (74-106)
[2024-01-29 11:30] LABS: Magnesium 2.4 mg/dL (1.6-2.6)
[2024-01-29] MEDS: LEVALBUTEROL HCL 1.25 MG/3 ML NEB NEB PRN (15:29)
== END 2024-01-29 19:00 | disposition short-term general hospital (02) | DRG 280 ==
LOC: EDUNIT# 11:32 → EDBD 11:32 → ER 11:32 → TELE 17:06 → TELE-WESTW 01-28 14:28
PROVIDERS: ADMIT Nurse Practitioner Family; ATTEND Nurse Practitioner Family
DX: I11.0 Hypertensive heart disease with heart failure (principal); I50.43 Acute on chronic combined systolic (congestive) and diastolic (congestive) heart failure; I21.A1 Myocardial infarction type 2; J96.01 Acute respiratory failure with hypoxia; I48.92 Unspecified atrial flutter; E78.5 Hyperlipidemia, unspecified; I48.0 Paroxysmal atrial fibrillation; N40.0 Benign prostatic hyperplasia without lower urinary tract symptoms; E03.9 Hypothyroidism, unspecified; E11.9 Type 2 diabetes mellitus without complications; I25.118 Atherosclerotic heart disease of native coronary artery with other forms of angina pectoris; E66.9 Obesity, unspecified; I08.1 Rheumatic disorders of both mitral and tricuspid valves; Z88.0 Allergy status to penicillin; Z87.891 Personal history of nicotine dependence; Z95.1 Presence of aortocoronary bypass graft; Z98.61 Coronary angioplasty status; Z68.33 Body mass index [BMI] 33.0-33.9, adult; Z79.4 Long term (current) use of insulin; Z79.899 Other long term (current) drug therapy; F32.A Depression, unspecified; I25.5 Ischemic cardiomyopathy
CPT/HCPCS: 36415; 71045; 80048; 80053; 80061; 81001; 83735; 83880; 84484; 85025; 85610; 93005; 94640; 99291; G0378; J2405